=== PATIENT | male | born 1945 | race Caucasian/White ===

== ENCOUNTER 2023-06-03 12:27 | Emergency (ER) | payer OTHER ==
[2023-06-03 12:43] VITALS: BP 144/122; PULSE 84; RESP 17; TEMP 97.9; BMI 19.5
[2023-06-03 14:39] LABS: BASO % 0.4 % (0-2.0); EOS % 1.1 % (0-4.5); HEMATOCRIT 31.9 % (35.4-49); HEMOGLOBIN 10.2 GM/dL (11.7-16.9); LYMPH % 25.4 % (8-40); MCH 27.3 pg (25.7-33.7); MEAN CELL VOLUME 85.4 fl (80-96); MEAN PLT VOLUME 6.9 fl (7.5-11.1); MONO % 8.4 % (3.8-10.2); NEUT % 64.7 % (42.8-82.8); PLATELET COUNT 443 10^3/uL (134-434); RBC 3.74 M/mm3 (4.00-5.60); RDW 17.7 % (11.9-15.9); WHITE BLOOD COUNT 5.9 K/mm3 (4.0-10.0)
[2023-06-03 14:46] LABS: INR 0.96 (0.83-1.09); PROTHROMBIN TIME (PATIENT) 11.1 SEC (9.7-13.0)
[2023-06-03 14:49] LABS: ACTIVATED PTT 31.1 SECONDS (25.2-36.5)
[2023-06-03 15:00] LABS: POTASSIUM 4.8 mmol/L (3.5-5.1)
[2023-06-03 15:02] LABS: CALCIUM 10.7 mg/dL (8.5-10.1)
[2023-06-03 15:03] LABS: ALBUMIN 4.1 g/dl (3.4-5.0); BLOOD UREA NITROGEN 23.6 mg/dL (7-18)
[2023-06-03 15:06] LABS: CREATININE 1.2 mg/dL (0.55-1.3)
[2023-06-03 15:07] LABS: TOT PROT 7.6 g/dl (6.4-8.2)
[2023-06-03 15:08] LABS: BILIRUBIN,TOTAL 0.5 mg/dL (0.2-1)
== END 2023-06-03 16:06 | disposition home or self-care (01) ==
LOC: JER 12:27
DX: D64.9 Anemia, unspecified (principal); R53.83 Other fatigue
CPT/HCPCS: 36415; 80053; 85025; 85610; 85730; 86850; 86900; 86901; 99283-25